=== PATIENT | male | born 1980 | race African-American/Black ===

== ENCOUNTER 2024-03-14 14:52 | Outpatient (AMB) | payer BC, SELFPAY ==
--- NOTE | 2024-03-14 15:01 | A.OFFPC_ITS ---
Vital Signs 03/14/24 15:06 03/14/24 15:27 03/14/24 15:27 Height 6 ft 1 in Weight 217 lb BMI 28.6 BP 97/54 L 96/51 L 94/55 L Blood Pressure Location Lt brachial Lt brachial Lt brachial Position Sitting Sitting Sitting Respiration 14 Pulse 74 Pulse Source Pulse Oximeter Temp 98.8 F Temp Source Temporal Artery Scan Pulse Oximetry (%) 99 Oxygen Delivery Method Room Air Intake Visit Reasons: [facility]REL [facility]- EST. CARE Intake Note: establish care right elbow pain pt has been seeing an acupuncture and that has been working for him Allergies No Known Allergies Allergy (Verified 03/14/24 15:02) Medication List - Last Reconciled 03/14/24 by Sotero Benavidez MD No Known Home Meds Tobacco use date assessed: 03/14/24 Dental Screening Dental Screen Date: 03/14/24 Did you have a dental visit in the last 12 months?: Yes Did you have a dental problem in the last 6 months where you did not have access to dental care?: No Was dental information given to patient?: Patient has dentist HPI [facility]- EST. CARE HPI Details New Patient? ?? Prior PCP:?PCP in [place] previously Last office visit/CPE:?> 5yrs Acute issue(s):? R Elbow pain ?? PMHx:? Healthy except environmental allergies SurgHx:?None FHx:? Mom: healthy. Dad: Vertigo. SocHx: Nonsmoker. EtOH: weekends 2-4 dr Shana Talbert drugs [facility] Social History (Updated 03/14/24 @ 15:04 by Ricardo Huggins [facility]) Housing: House Patient Tobacco Use Status: Never used Tobacco e-Cigarette/Vaping Use: Never Used Second Hand Smoke Exposure: No Use of substances other than those prescribed or required for medical reasons: No service: No Current occupational status: employed Current occupation: driller Current occupational exposures/hazards: Yes Cognitive needs: No Hearing needs: No Vision needs: No Questionnaire PHQ-9 Over the last 2 weeks, how often have you been bothered by any of the following problems? 1. Little interest or pleasure in doing things: several days 2. Feeling down, depressed, or hopeless: not at all 3. Trouble falling or staying asleep, or sleeping too much: not at all 4. Feeling tired or having little energy: not at all 5. Poor appetite or overeating: not at all 6. Feeling bad about yourself - or that you are a failure or have let yourself or your family down: not at all 7. Trouble concentrating on things, such as reading the newspaper or watching television: not at all 8. Moving or speaking so slowly that other people could have noticed. Or the opposite - being so fidgety or restless that you have been moving around a lot more than usual: not at all 9. Thoughts that you would be better off or of hurting yourself in some way: not at all Total score: 1 Depression Screening Interpretation: Negative Depression Screening Done: Yes 77275 - PHQ-9 Billing: Yes Source: Developed by Drs. Scotty Toussaint, Ines Hernández, Tito Howard and colleagues, with an educational shakila from [employer]. Thrive Questionnaire Date Thrive assessed: 03/14/24 I am a: Patient What is your living situation today?: I have a steady place to live Within the past 12 months, did the food you bought not last and you didn't have the money to get more?: Never true Within the past 12 months, did you worry whether your food would run out before you got money to buy more?: Never true Do you have trouble paying for medicines?: No Do you have trouble getting transportation to medical appointments?: No Do you have trouble paying your heating and electricity bill?: No Do you have trouble taking care of your child, family member or friend?: No Do you have trouble with day-to-day activities such as bathing, preparing meals, shopping, managing finances, etc.?: No Are you currently unemployed and looking for a job?: No Are you interested in more education?: No Please select the resources that you would like help with: None Currently or been in a relationship where the following occur: No concerns reported THRIVE Score: 0 AUDIT C Alcohol Use Questionnaire (AUDIT-C) 1. How often do you have a drink containing alcohol?: 2-3 times a week 2. How many drinks containing alcohol do you have on a typical day when you are drinking?: 3 or 4 3. How often do you have six or more drinks on one occasion?: Never Total Score: 4 ANNE-7 AMB Questionnaire ANNE-7 Date ANNE - 7 assessed: 03/14/24 Feeling nervous, anxious, or on edge: 0 = Not at all Not being able to stop or control worryin = Not at all Worrying too much about different things: 0 = Not at all Trouble relaxin = Not at all Being so restless that it is hard to sit still: 0 = Not at all Becoming easily annoyed or irritable: 0 = Not at all Feeling afraid as if something awful might happen: 0 = Not at all Total ANNE-7 score (0-4 normal; 5-9 mild; 10-14 moderate; 15-21 severe): 0 Source: Developed by Drs. Scotty Toussaint, Ines Hernández, Tito Howard and colleagues, with an educational shakila from [employer]. ANNE-7 Assessment Billing ANNE-7 Assessment Tool: ANNE-7 Assessment 04696 Review of Systems Const Denies chills, Denies fatigue, Denies fever(s), Denies headache(s) and Denies weakness ENT Denies dizziness and Denies headache(s) Card Denies dyspnea Resp Denies cough, Denies dyspnea, Denies wheezing and Denies other (shortness of breath) Musc Denies numbness and Denies tingling Neuro Denies dizziness, Denies headache(s), Denies numbness, Denies tingling and Denies weakness Psych Denies anxiety and Denies depression Endo Denies fatigue Aller/Immun Denies wheezing Physical exam (Primary Care) Vital Signs: Last Vital Signs Temp 98.8 F 03/14/24 15:06 Pulse 74 03/14/24 15:06 Resp 14 03/14/24 15:06 BP 97/54 L 03/14/24 15:06 Pulse Ox 99 03/14/24 15:06 Oxygen Delivery Method Room Air 03/14/24 15:06 BMI result Body Mass Index 28.6 Tobacco/Smoking Status: Tobacco use Status Tobacco use date assessed 03/14/24 03/14/24 15:04 Patient Tobacco Use Status Never used Tobacco 03/14/24 15:04 e-Cigarette/Vaping Use Never Used 03/14/24 15:04 PHQ-9: PHQ-9 Score PHQ-9: Total score 1 03/14/24 15:09 Depression Screening Interpretation: Negative Thrive Assessment: Date of Thrive Assessment Date Thrive assessed 03/14/24 03/14/24 15:09 Currently or been in a relationship where the following occur: No concerns reported Const General: well developed; No acute distress Nutritional Appearance: well nourished Orientation/consciousness: patient oriented x3 HENMT Head: Yes normocephalic and Yes atraumatic Eyes General: appearance normal, both eyes and all related structures Pupils: Equal, round and reactive pupils present EOM: EOMs intact bilaterally Resp Effort & Inspection: normal respiratory effort Auscultation: clear to auscultation bilaterally Cardio Rate: regular rate Rhythm: regular rhythm Heart sounds: S1 normal heart sound present, S2 normal heart sound present, no gallops, no murmurs and no rubs Neuro General: patient oriented x3 and gait normal Cranial nerves: Yes Equal, round and reactive pupils present Psych Affect: normal affect Coding Level of Care Code New Pt Level 3 (54821) Diagnoses Right elbow pain M25.521 Environmental allergies Z91.09 Laboratory exam ordered as part of routine general medical examination Z00.00 Additional Codes ANNE-7 Assessment Billing - ANNE-7 Assessment Tool: ANNE-7 Assessment 35726 ([id number]) Assessment & Plan Assessment & Plan (1) Right elbow pain: Code(s): M25.521 - Pain in right elbow Category: Medical Plan: Right?elbow?pain?over?olecranon?which?has?improved?but?has?been?ongoing?for?kale ral?months. Possible?bursitis?or?more?likely?tendinitis We?discussed?relative?rest,?ice/heat?and?topical?NSAIDs?(patient?does?not?want?t o?take?oral?NSAIDs). He?can?also?consider?a?neoprene?brace?when?performing?sports?or?work?and?n eeding?extra?support?but?otherwise?remove He?will?call?or?return?to?office?if?not?improving?or?worsens.??Would?consider?oc cupational?therapy (2) Environmental allergies: Code(s): Z91.09 - Other allergy status, other than to drugs and biological substances Category: Medical Plan: We?discussed?HEPA?filters,?hypoallergenic?bed?covered, second- generation?antihistamines?which?he?uses, nasal?steroids?and?nasal?saline.??Also?allergy?eyedrops?such?as?Pataday. 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 Hydrate?well He?will?let?me?know?if?he?has?any?problems Orders: Orders Lipid Panel Today Z00.00 - Encounter for general adult medical examination without abnormal findings UA and rflx microscopic Today Z00.00 - Encounter for general adult medical examination without abnormal findings Comprehensive [place]. Panel Fast Today Z00.00 - Encounter for general adult medical examination without abnormal findings Prostate Specific Antigen Scr Today Z12.5 - Encounter for screening for malignant neoplasm of prostate Microalbumin, Random (w Creat) Today I10 - Essential (primary) hypertension TSH reflex Free T4 Today Z00.00 - Encounter for general adult medical examination without abnormal findings
[2024-03-14 15:06] VITALS: BP 97/54; PULSE 74; RESP 14; TEMP 37.1; O2SAT 99; BMI 28.6
[2024-03-14 15:27] VITALS: BP 94/55; BP 96/51
== END 2024-03-14 15:44 | disposition home or self-care (01) ==
PROVIDERS: PCP Family Medicine; Visit Provider Family Medicine
DX: M25.521 Pain in right elbow (principal); Z91.09 Other allergy status, other than to drugs and biological substances; Z00.00 Encounter for general adult medical examination without abnormal findings

== ENCOUNTER → 2024-03-14 14:52 | Outpatient (BNVA) | payer BC, SELFPAY | PROVIDERS: PCP Family Medicine; Visit Provider Family Medicine | DX: M25.521 Pain in right elbow (principal); Z91.09 Other allergy status, other than to drugs and biological substances | CPT/HCPCS: 96127 ==

== ENCOUNTER 2024-03-31 08:20 | Outpatient (REF) | payer BC, SELFPAY ==
[2024-03-31 10:10] LABS: Appearance Urine Clear; Color Urine Yellow; Glucose Urine UA Negative (Negative); Leukocyte Esterase Urine Negative (Negative); Nitrite Urine Negative (Negative); PH 6.5 (5.0-9.0); Specific Gravity - Urine 1.025 (1.005-1.025); Urine Blood Negative (Negative); Urine Ketones Negative (Negative); Urine Protein Negative (Neg-Trace)
[2024-03-31 10:24] LABS: Alanine Aminotransferase 54 U/L (0-40); Albumin Level 4.5 g/dL (3.5-5.0); Alkaline Phosphatase 66 U/L (39-117); Anion Gap 15 (12-20); Aspartate Amino Transferase 29 U/L (5-37); Bilirubin Total 1.2 mg/dL (0.0-1.0); Blood Urea Nitrogen 12 mg/dL (9-16); Calcium 9.6 mg/dL (8.4-10.2); Carbon Dioxide 25 mmol/L (22-29); Chloride 107 mmol/L (96-108); Cholesterol 173 mg/dL (<200); Estimated Glomerular Filt Rate > 60; Glucose Fasting 89 mg/dL (60-99); HDL Cholesterol 56 mg/dL (>40); LDL Cholesterol Calculated 98 mg/dL (<100); Potassium 4.1 mmol/L (3.3-5.1); Sodium 143 mmol/L (135-145); Total Protein 7.7 g/dL (6.5-8.0); Triglycerides 97 mg/dL (<150)
[2024-03-31 10:34] LABS: Microalbum/Creatinine Ratio Ur 2.4 ug/mg cr (<30)
== END 2024-03-31 08:21 | disposition home or self-care (01) ==
LOC: HO.LAB 08:20
PROVIDERS: PCP Family Medicine; Visit Provider Family Medicine
DX: Z00.00 Encounter for general adult medical examination without abnormal findings (principal); Z12.5 Encounter for screening for malignant neoplasm of prostate; I10 Essential (primary) hypertension
CPT/HCPCS: 36415; 80053; 80061; 81003; 82043; 82570; 84153; 84443